=== PATIENT | female | born 1965 | race Caucasian/White ===

== ENCOUNTER 2020-02-16 16:59 | Emergency (ER) | payer BC | END 2020-02-16 18:11 | disposition home or self-care (01) | LOC: JVIRT 16:59 | DX: Z03.818 Encounter for observation for suspected exposure to other biological agents ruled out (principal) | CPT/HCPCS: C9803; Q3014-GT; U0003 ==

== ENCOUNTER 2020-02-21 09:57 | Emergency (ER) | payer BC | END 2020-02-21 11:05 | disposition home or self-care (01) | LOC: JVIRT 09:57 | DX: Z11.59 Encounter for screening for other viral diseases (principal) | CPT/HCPCS: C9803; Q3014-GT; U0003 ==